=== PATIENT | female | born 2000 | race Caucasian/White ===

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

== ENCOUNTER 2023-09-28 09:27 | Emergency (ER) | payer OTHER, SELFPAY ==
[2023-09-28 09:30] VITALS: BP 107/64; PULSE 78; RESP 20; TEMP 36.4; O2SAT 98
[2023-09-28 10:09] LABS: Strep Group A RT-PCR NOT DETECTED (Negative)
[2023-09-28 10:26] LABS: Influenza A QL RT-PCR Negative (Negative); Influenza B QL RT-PCR Negative (Negative); RSV RNA, RT-PCR Negative (Negative); SARS-CoV-2 RNA PCR Negative (Negative)
--- NOTE | 2023-09-28 12:15 | ED.GENADULT ---
HPI - General Adult General Chief complaint: Upper Respiratory Infection Stated complaint: sore throat and ear pain Time Seen by Provider: 09/28/23 12:03 History of Present Illness HPI narrative: Patient is a 22-year-old female who presents to the emergency department this evening complaining of right ear pain and URI symptoms. Patient admits that she has been having cough and a sore throat. She admits that she felt warm at home but did not actually check her temperature. Patient is also concerned about STDs and wants to be tested for gonorrhea, chlamydia and Trichomonas. Denies any additional concerns or symptoms at this time. Related Data Allergies Allergy/AdvReac Type Severity Reaction Status Date / Time No Known Allergies Allergy Verified 09/28/23 12:06 Review of Systems Review of Systems: All systems are reviewed and are negative unless stated otherwise in the HPI. [facility] Past Medical History Medical History No acute medical problems Surgical History Surgical History No pertinent past surgical history Family History Family History Mother Family history unknown Other No acute medical problems Social History Social History Smoking status: Current some day smoker Tobacco type: e-cigarettes/vaping Alcohol intake: never Substance use: never Living arrangements: alone Gender identity (if verbalized by the patient): Female Spiritual care concerns: No Exam Narrative: General: Alert, awake, afebrile, in no acute distress. HEENT: PERRL, no rhinorrhea, no post nasal drip, oropharynx erythema with mild tonsillar swelling, diminished light reflex of the right TM. Neck: Trachea midline, no JVD, no lymphadenopathy. Cardiovascular: Regular rate and rhythm, no murmurs, rubs or gallops, no peripheral edema. Respiratory: Clear to auscultation bilaterally, no tachypnea, no wheezing, no rhonchi, no rubs, no respiratory distress. Abdomen: Soft, nontender, nondistended, no rebound, no guarding, no peritoneal signs. Musculoskeletal: No joint swelling or deformity, normal muscle tone. Skin: No rashes or petechia, no signs of infection. Neurological: Alert and oriented to person, place, and time. Follows all commands. No focal deficits, speech is clear and fluent. Course Vital Signs Vital signs: Vital Signs Temperature 97.5 F L 09/28/23 09:30 Pulse Rate 78 09/28/23 09:30 Respiratory Rate 20 09/28/23 09:30 Blood Pressure 107/64 09/28/23 09:30 Pulse Oximetry 98 09/28/23 09:30 Oxygen Delivery Room Air 09/28/23 09:30 Temperature 97.5 F L 09/28/23 09:30 Pulse Rate 78 09/28/23 09:30 Respiratory Rate 20 09/28/23 09:30 Blood Pressure 107/64 09/28/23 09:30 Pulse Oximetry 98 09/28/23 09:30 Oxygen Delivery Room Air 09/28/23 12:00 Medical Decision Making MDM Narrative Medical decision making narrative: The patient was evaluated by myself in the emergency department. History is obtained from patient who is an independent historian and physical exam was performed. External medical records were reviewed at this time. Viral swabs were obtained and noted to be negative. Urinalysis obtained reveal urinary tract infection. Trichomonas, gonorrhea and chlamydia testing were all negative. Patient did not want have a pelvic exam and wanted STD testing via urine. Differential diagnosis considerations include acute viral syndrome, strep throat, UTI and STDs. Comorbidities impacting this visit include none. I have evaluated and discussed social determinants of health with the patient that could potentially impact subsequent diagnosis and treatment plans. On repeat assessment of the patient, reevaluation revealed that the patient is doing well and i
[2023-09-28 12:46] LABS: Amorphous Sediment Urine Few; Appearance Urine Cloudy (Clear); Bacteria Urine 4+ /hpf; Bilirubin Urine Negative (Negative); Blood Urine Negative (Negative); Color Urine Yellow (Yellow); Glucose Urine UA Negative (Negative); Ketones Urine 2+ mg/dL (Negative); Leukocyte Esterase Ur Trace LEU/UL (Negative); Mucus Urine Present /lpf; Nitrate Urine Negative (Negative); Protein Urine Trace mg/dL (Negative); Specific Grav Ur 1.018 (1.001-1.035); Squamous Epithelial Cell Urine Moderate /hpf (Few); WBC Urine 21-50 /hpf (0-3)
[2023-09-28 12:48] LABS: Add Urine Microscopic? YES
[2023-09-28 13:30] LABS: Trichomonas Vag PCR NOT DETECTED (NOT DETECTE)
[2023-09-28 13:55] LABS: Chlamydia trachomatis NOT DETECTED (NOT DETECTE); Neisseria gonorrhoeae PCR NOT DETECTED (NOT DETECTE)
--- NOTE | 2023-09-28 14:28 | PC.NURSE ---
called pts mom per pt request for a ride home. mom will be coming to pick her up. pt also provided a note for being seen today per request
[2023-09-28 14:29] VITALS: BP 102/66; PULSE 87; RESP 14; O2SAT 100
== END 2023-09-28 14:28 | disposition home or self-care (01) ==
PROVIDERS: Emergency Medicine; Emergency Provider Emergency Medicine
DX: H66.91 Otitis media, unspecified, right ear (principal); N39.0 Urinary tract infection, site not specified; B34.9 Viral infection, unspecified; F17.290 Nicotine dependence, other tobacco product, uncomplicated
CPT/HCPCS: 81001; 81025; 87086; 87088; 87491; 87591; 87637; 87651; 87661; 99284